=== PATIENT | male | born 1985 | race Asian ===

== ENCOUNTER 2017-02-18 05:24 | Emergency (ER) | payer OTHER ==
[~2017-02-18] VITALS: Ht 172.7 cm; Wt 79.4 kg
[2017-02-18] MEDS ORDERED: CEPHALEXIN500 MG PO (06:22)
[2017-02-18] MEDS ORDERED: KEFLEX500 MG PO (07:30)
== END 2017-02-18 07:51 | disposition home or self-care (01) ==
LOC: ED 05:24
PROC: 2Y41X5Z Packing of Nasal Region using Packing Material (ICD-10-PCS; principal; 2017-02-18)
DX: R04.0 Epistaxis (principal)
CPT/HCPCS: 30903; 36415; 85025; 96374; 99284; J2405; J7030

== ENCOUNTER 2017-02-21 10:08 | Emergency (ER) | payer OTHER ==
[~2017-02-21] VITALS: Ht 172.7 cm; Wt 79.4 kg
[~2017-02-21 10:08] MED LIST: CEPHALEXIN500 MG PO; KEFLEX500 MG PO
== END 2017-02-21 10:29 | disposition home or self-care (01) ==
LOC: ED 10:08
DX: Z48.00 Encounter for change or removal of nonsurgical wound dressing (principal)